=== PATIENT | female | born 1995 | race Caucasian/White ===

== ENCOUNTER 2016-08-01 23:05 | Emergency (ER) ==
[2016-08-02 02:08] LABS: BILIRUBIN URINE NEGATIVE (NEGATIVE); BLOOD URINE NEGATIVE (NEGATIVE); CLARITY CLEAR (CLEAR); COLOR YELLOW; GLUCOSE URINE NEGATIVE (NEGATIVE); LEUKOCYTES URINE NEGATIVE (NEGATIVE); NITRITE URINE NEGATIVE (NEGATIVE); PROTEIN URINE NEGATIVE (NEGATIVE); UROBILINOGEN URINE NORMAL
[2016-08-02] MEDS ORDERED: MORPHINE IV ONE (02:19)
[2016-08-02] MEDS ORDERED: NS 1,000 ML IV PRN (02:19)
[2016-08-02] MEDS ORDERED: SODIUM CHLORIDE 0.9% INJ ONE (02:19)
[2016-08-02] MEDS ORDERED: PHENERGAN IV ONE (02:19)
--- NOTE | 2016-08-02 02:19 | PROVIDER DOCUMENTATION ---
HPI-General Adult - History of Present Illness -Gen Adult Nature of Presenting Problems: 21 YOWF PRESENTS TO ED WITH C/O N/V/D ABDOMINAL PAIN X 2 DAYS. PT STATES MULTIPLE VOMITING AND DIARRHEA TODAY. PT PRESENTS WITH LOWER ABDOMINAL PAIN. RT CVA TENDERNESS UPON PALPATION. Location of Pain/Injury: reports: abdomen Pain Radiation: reports: no radiation Quality of Pain: reports: aching Severity: reports: moderate Onset/Duration: reports: 2 days ago Timing: reports: still present Context/Activities at Onset: reports: light activity Modifying Factors: improves with: nothing Similar Symptoms Previously?: No Recently seen or treated by another doctor?: No <Alton Callaway - Last Filed: 08/02/16 02:13> <Paco Smith - Last Filed: 08/02/16 05:52> - General Chief Complaint: N/V/D Stated Complaint: FLANK SIDE Time Seen by Provider: 08/02/16 01:56 Allergies/Adverse Reactions: Patient Allergies Allergy/AdvReac Type Severity Reaction Status Date / Time amoxicillin trihydrate * Allergy ITCHING Verified 11/11/15 20:29 [From Augmentin] potassium clavulanate * Allergy ITCHING Verified 11/11/15 20:29 [From Augmentin] Review of Systems - Adult - REVIEW OF SYSTEMS - ADULT Constitutional: denies: chills, fever Cardiovascular: denies: chest pain, palpitations, syncope Respiratory: denies: cough, shortness of breath, wheezing Gastrointestinal: reports: abdominal pain, diarrhea, nausea, vomiting Musculoskeletal: denies: back pain, neck pain Neurological: denies: dizziness/vertigo, headache/migraines, syncope <Alton Callaway - Last Filed: 08/02/16 02:13> Past History - Adult - PAST MEDICAL HISTORY-ADULT Review of Records: reports: Nursing Assessment Review, Medications Reviewed - PRIOR SURGERIES/PROCEDURES Surgical/Procedure History: reports: none - IMMUNIZATION STATUS Childhood Immunizations: See Nurse Assessment Flu Vaccine: See Nurse Assessment - SOCIAL HISTORY Smoking: denies Substance Use: denies Alcohol Use Frequency: never Living Situation: family <Alton Callaway - Last Filed: 08/02/16 02:13> Physical Exam-General - CONSTITUTIONAL General Appearance: alert, mild distress - EYES Eyes: PERRL/EOMI, pink conjunctivae - HEAD, EARS, NOSE, MOUTH & THROAT HENMT: normocephalic/atraumatic, moist mucous membranes - NECK Neck: non-tender, full range of motion, supple - RESPIRATORY Respiratory: chest non-tender, lungs clear, normal breath sounds - CARDIOVASCULAR Cardiovascular: normal peripheral pulses, regular rate, rhythm - GASTROINTESTINAL (ABDOMEN) Abdominal Exam: normal bowel sounds, non tender, soft - LYMPHATIC Lymphatic: no adenopathy - MUSCULOSKELETAL Back Exam: normal inspection, no CVA tenderness, CVA tenderness (RT SIDE) Extremity: normal range of motion, non-tender - SKIN Integumentary: normal color, normal turgor, warm/dry - NEUROLOGIC Neurologic: grossly normal - PSYCHIATRIC Psych/Mental Status: oriented x 3 <Alton Callaway - Last Filed: 08/02/16 02:13> Progress - CT/MRI 1 CT Study: Abdomen Impression: Normal Comparison with other Films: no prior study <Paco Smith - Last Filed: 08/02/16 05:52> Departure <Alton Callaway - Last Filed: 08/02/16 02:13> - Departure Time of Disposition Order: 05:50 Certified Medical Emergency: Emergent <Paco Smith - Last Filed: 08/02/16 05:52> - Departure DIAGNOSIS: Enteritis Disposition: HOME 01 Condition: Fair Additional Instructions: CLEAR LIQUIDS TODAY: GATORADE/ POWERADE THEN MAY SLOWLY ADVANCE TOLERATED TO CRACKERS, APPLESAUCE, RICE, BANANAS. Prescriptions: Diphenoxylate/Atropine [Lomotil] 1 - 2 each PO Q6H PRN PRN #20 tablet PRN Reason: Cramps Promethazine [Phenergan] 1 - 2 tab PO Q6H PRN PRN #18 tablet PRN Reason: Vomiting Ondansetron HCl [Zofran] 1 - 2 tab PO Q6H PRN PRN #15 tablet PRN Reason: Vomiting Attestation - Scribe Verification/Attestation Scribe:: Alton Callaway Acting as Scribe for:: Paco Smith Scribe documention review:: This chart was documented by a scribe and accurately reflects the service the provider performed and the decisions made by the provider. <Alton Callaway - Last Filed: 08/02/16 02:13> Physician Attestation
[2016-08-02 02:32] LABS: URINE CULTURE PL NEEDED? YES; URINE EPITHELIAL CELLS <10 /HPF (<10); URINE SOURCE CLEAN CATCH; URINE WBC <10 /HPF (<10)
[2016-08-02 03:22] LABS: MANUAL DIFF NEEDED? NO
[2016-08-02 03:28] LABS: BASO% 0.2 % (0.0-0.8); EOS# 0.06 X1000 (0.0-0.7); EOS% 0.6 % (0.0-10.0); HEMATOCRIT 35.6 % (37.0-47.0); HEMOGLOBIN 11.5 g/dL (12.0-16.0); IMM GRAN# 0.01 X1000 (0.0-0.04); IMM GRAN% 0.1 % (0.0-0.5); LYMPH# 1.07 X1000 (1.2-3.4); LYMPH% 11.3 % (20.5-51.1); MCH 23.6 PG (27-31); MCHC 32.3 g/dL (33-37); MONO# 0.48 X1000 (0.11-0.59); MPV 11.6 FL (7.4-10.4); NEUT% 82.8 % (42.2-75.2); PLT 321 X1000 (130-400); RBC 4.88 XMIL (4.2-5.4)
[2016-08-02 03:40] LABS: AGAP 10; BUN 13 mg/dL (8-22); CALCIUM 8.9 mg/dL (8.8-10.2); CHLORIDE 101 mmol/L (98-107); COSMO 274; POTASSIUM 3.5 mmol/L (3.5-5.1); SODIUM 137 mmol/L (136-145); TCO2 26 mmol/L (25-35)
[2016-08-02 06:22] VITALS: BP 95/64
--- NOTE | 2016-08-02 10:39 | Diag Imaging Result Document ---
PROCEDURE NAME: ABDOMEN/PELVIS W/CONTRAST - 08/02/2016 CT SCAN OF THE ABDOMEN AND PELVIS WITH IV AND ORAL CONTRAST: INDICATION: Right lower quadrant pain Vomiting. Body ache. FINDINGS: There is no evidence for bowel obstruction. No evidence for acute appendicitis. There area no inflammatory changes about the cecum. There are mildly prominent mesenteric lymph nodes right lower quadrant which may represent adenitis. There are follicles involving both ovaries measuring up to 18 mm on the right. There is trace free fluid within the cul-de-sac. There is no evidence for diverticulitis. The solid visceral organs are unremarkable. There is no abscess or free air. No calcified gallstones are appreciated. IMPRESSION: Prominent mesenteric lymph nodes right lower quadrant which may represent mesenteric adenitis. No evidence for acute appendicitis.
== END 2016-08-02 06:20 | disposition home or self-care (01) ==
LOC: P.ED 23:05
DX: K52.9 Noninfective gastroenteritis and colitis, unspecified (principal); R11.2 Nausea with vomiting, unspecified; R19.7 Diarrhea, unspecified; R10.30 Lower abdominal pain, unspecified
CPT/HCPCS: 74177; 80048; 81001; 81025; 85025; 87088; 87804; 96361; 96374; J2550; J7030; Q9967